=== PATIENT | male | born 1970 | race Caucasian/White ===

== ENCOUNTER 2022-07-28 17:59 | Emergency (ER) | payer OTHER, SELFPAY ==
[2022-07-28] VITALS (37 sets, daily range): BP systolic 149–175; BP diastolic 82–108; PULSE 82–120; RESP 20; TEMP 36.3; O2SAT 89–97; BMI 29.8
--- NOTE | 2022-07-28 18:25 | ED.NURSE ---
Pt right pedal pulse auscultated by doppler monitor. Pt left pedal pulse absent on doppler monitor. MD updated.
--- NOTE | 2022-07-28 18:44 | CRLHL7_ITS ---
For Patients: As a result of the Century Cures Act, medical imaging exams and procedure reports are released immediately into your electronic medical record. You may view this report before your referring provider. If you have questions, please contact your health care provider. Examination: Left lower extremity arterial Duplex ultrasound. Indication: Acute onset right leg pain. Technique: The left leg arteries were examined. Ultrasound performed using real-time romero scale imaging (B-mode 2D), color-flow Doppler and spectral analysis. Comparison: None available Findings: Triphasic waveforms are noted in the common femoral, profunda femoral, and superficial femoral artery. No evidence of arterial occlusion or significant stenosis proximal to the popliteal artery. Triphasic waveform in the proximal popliteal artery with abrupt occlusion of the mid popliteal artery. The anterior tibial and dorsalis pedis arteries are also occluded. Proximal posterior tibial and peroneal arteries are occluded with some weak monophasic flow detected in both vessels distally. Impression: 1. Occlusion of popliteal artery with no flow identified in the anterior tibial/dorsalis pedis artery. Minimal monophasic flow in the posterior tibial and peroneal arteries. Discussed with Dr. Mendieta at time of interpretation. Dictated by Jua nJ Piña MD @ 07/28/2022 8:29:01 PM (Electronically Signed)
[2022-07-28] MEDS: MORPHINE 4 MG/ML INJ IVP ×2 (18:47→19:26)
[2022-07-28] MEDS: ONDANSETRON 2 MG/ML inj 4 MG IVP (18:47)
[2022-07-28 18:58] LABS: Basophils Percent Auto 0.4 % (0.0-3.0); Eosinophils Percent Auto 0.7 % (0.0-7.0); Hematocrit 43.9 % (37.0-53.0); Hemoglobin* 14.3 gm/dL (13.5-17.5); Immature Granulocytes Pct Auto 0.3 %; Lymphocytes Percent Auto 5.6 % (20-44); Mean Corpuscular HGB Conc 33 gm/dL (32-36); Mean Corpuscular Hemoglobin 28 pg (26-34); Mean Corpuscular Volume 86 fL (80-100); Platelet Count* 179 K/uL (140-440); RDW Coefficient of Variation % 14.3 % (11.5-15.5)
[2022-07-28] MEDS: HEPARIN 25,000 UNIT/500 ML BAG 20 UNIT IV (19:02)
[2022-07-28 19:03] LABS: Slide Review Reflex No
[2022-07-28] MEDS: HEPARIN 5,000 UNIT/0.5 ML INJ 4000 UNIT IVP (19:03)
[2022-07-28] MEDS: 0.9 % SODIUM CHLORIDE 1000 ml 1,000 ML IV (19:04)
[2022-07-28 19:10] LABS: Albumin* 4.2 g/dL (3.3-5.0)
--- NOTE | 2022-07-28 19:10 | ED.GENADULT ---
HPI - General Adult General Date Seen: 07/28/22 Chief complaint: Extremity Pain/Injury, Lower Stated complaint: Stabbing pain in L leg, top of foot to below knee Time Seen by Provider: 07/28/22 18:09 Source: patient History of Present Illness HPI narrative: Patient is a 52-year-old male with history of CT, cholecystectomy, rectal cancer and colostomy. He presents with sudden onset of severe left leg pain. This started around noon today, he says it started in the anterior ankle initially. He had some paresthesias in his foot developed as well. He says the severe pain in his ankle region lasted for about an hour and a half and then seem to darius a little bit. For the afternoon, pain was present but less severe. However, since then it has crept up his leg any now has severe pain in the wallace area up to just below his knee. He has severe pain if he tries to actively dorsiflex the foot. He has severe pain when he is at rest. His notes that his foot looks ?bruised?. They have not noted any redness. He sometimes has swelling in his legs but not currently. He has not had any trauma. He does not take any anticoagulants. His last surgery was a couple of years ago. No recent head trauma or bleeding. He does not currently smoke. No history of significant cigarette use although he does chew tobacco. He does drink regularly, his says that he drinks more than he should. Related Data Home Medications Medication Instructions Recorded Confirmed No Known Home Medications 07/28/22 07/28/22 Allergies Allergy/AdvReac Type Severity Reaction Status Date / Time No Known Drug Allergies Allergy Verified 07/28/22 18:06 Review of Systems Status of ROS: Reports: 10 or more systems reviewed and unremarkable except as noted in History and below PFSH PFS Social History Smoking Status: Former smoker Do you use any of these nicotine containing products: None Second hand tobacco smoke exposure: No How often do you have a drink containing alcohol: 4 or more times a week How many standard drinks containing alcohol do you have on a typical day: 3 or 4 How often do you have six or more drinks on one occasion: Monthly AUDIT-C Alcohol total score: 7 Non-prescribed substance use: denies use Exam Narrative: Exam Narrative: Vital signs as noted above. In general, an alert, nontoxic male. Looks uncomfortable. Head: Normocephalic, atraumatic. Eyes: Pupils are equal reactive. Extraocular movements are full. Conjunctivae are normal. Conjunctiva anicteric. ENT: Mucous membranes are moist. Throat is normal. Neck: Supple without lymphadenopathy. Heart: Regular rate and rhythm. No murmur or rub. Lungs: Clear bilaterally. No increased work of breathing, crackles or wheezes. Abdomen: Soft and nontender. No organomegaly. Ostomy bag. Extremities: On the right, he has a good dorsalis pedis pulse, brisk capillary refill. On the left, he has significant tenderness of the anterior tibialis muscle. There is no significant erythema or edema. Dorsalis pedis pulse is absent. The foot is cool, dusky in appearance. Capillary refill is 3+ seconds. He does have hair on his toes. He has pain with active dorsiflexion of the ankle on the left but does not have pain with passive dorsiflexion. Neurologic: Patient is alert and oriented to person and place. Speech is fluent. Face is symmetric. Moves all extremities equally. Affect: Normal. Skin: Warm and dry. Well perfused. Const: Vital Signs, click to edit/add: Vital Signs - 24 hr 07/28/22 18:03 07/28/22 18:31 07/28/22 18:32 Temperature 97.4 F L Pulse Rate 110 H 111 H Pulse Rate [Right Pulse Oximeter] 120 H Respiratory Rate 20 Blood Pressure 164/93 H Blood Pressure [Ri ght Upper Arm] 175/86 H Pulse Oximetry 97 97 96 Oxygen Delivery Me thod Room Air Room Air 07/28/22 19:06 07/28/22 19:07 07/28/22 19:15 Temperature Pulse Rate 97 82 96 Pulse Rate [Right Pulse Oximeter] Respiratory Rate Blood Pressure 149/90 H Blood Pressure [Ri ght Upper Arm] Pulse Oximetry 94 94 94 Oxygen Delivery Me thod 07/28/22 19:16 07/28/22 19:17 07/28/22 19:30 Temperature Pulse Rate 98 96 101 H Pulse Rate [Right Pulse Oximeter] Respiratory Rate Blood Pressure 153/88 H Blood Pressure [Ri ght Upper Arm] Pulse Oximetry 92 96 96 Oxygen Delivery Wi thod 07/28/22 19:31 07/28/22 19:45 07/28/22 19:46 Temperature Pulse Rate 106 H 102 H 107 H Pulse Rate [Right Pulse Oximeter] Respiratory Rate Blood Pressure 161/96 H 162/89 H Blood Pressure [Ri ght Upper Arm] Pulse Oximetry 95 95 94 Oxygen Delivery Me thod 07/28/22 20:00 07/28/22 20:01 07/28/22 20:15 Temperature Pulse Rate 98 106 H 103 H Pulse Rate [Right Pulse Oximeter] Respiratory Rate Blood Pressure 165/101 H Blood Pressure [Ri ght Upper Arm] Pulse Oximetry 95 95 95 Oxygen Delivery Me thod 07/28/22 20:16 07/28/22 20:17 07/28/22 20:30 Temperature Pulse Rate 106 H 108 H 105 H Pulse Rate [Right Pulse Oximeter] Respiratory Rate Blood Pressure 161/91 H Blood Pressure [Ri ght Upper Arm] Pulse Oximetry 93 95 94 Oxygen Delivery Me thod 07/28/22 20:32 07/28/22 20:45 07/28/22 20:46 Temperature Pulse Rate 106 H 104 H 102 H Pulse Rate [Right Pulse Oximeter] Respiratory Rate Blood Pressure 174/92 H 158/88 H Blood Pressure [Ri ght Upper Arm] Pulse Oximetry 95 93 92 Oxygen Delivery Me thod 07/28/22 21:00 07/28/22 21:01 07/28/22 21:15 Temperature Pulse Rate 104 H 105 H 118 H Pulse Rate [Right Pulse Oximeter] Respiratory Rate Blood Pressure 160/93 H Blood Pressure [Ri ght Upper Arm] Pulse Oximetry 91 93 92 Oxygen Delivery Me thod 07/28/22 21:16 07/28/22 21:30 07/28/22 21:31 Temperature Pulse Rate 98 104 H 116 H Pulse Rate [Right Pulse Oximeter] Respiratory Rate Blood Pressure 161/88 H 158/94 H Blood Pressure [Ri ght Upper Arm] Pulse Oximetry 89 92 93 Oxygen Delivery Me thod 07/28/22 21:32 07/28/22 21:45 07/28/22 21:47 Temperature Pulse Rate 102 H 102 H 98 Pulse Rate [Right Pulse Oximeter] Respiratory Rate Blood Pressure 151/82 H Blood Pressure [Ri ght Upper Arm] Pulse Oximetry 93 92 92 Oxygen Delivery Me thod 07/28/22 22:00 07/28/22 22:01 07/28/22 22:15 Temperature Pulse Rate 102 H 105 H 102 H Pulse Rate [Right Pulse Oximeter] Respiratory Rate Blood Pressure 158/94 H Blood Pressure [Ri ght Upper Arm] Pulse Oximetry 90 93 94 Oxygen Delivery Me thod 07/28/22 22:16 07/28/22 22:17 07/28/22 22:30 Temperature Pulse Rate 104 H 108 H 112 H Pulse Rate [Right Pulse Oximeter] Respiratory Rate Blood Pressure 159/92 H Blood Pressure [Ri ght Upper Arm] Pulse Oximetry 92 93 95 Oxygen Delivery Me thod 07/28/22 22:32 Temperature Pulse Rate 110 H Pulse Rate [Right Pulse Oximeter] Respiratory Rate Blood Pressure 172/108 H Blood Pressure [Ri ght Upper Arm] Pulse Oximetry 96 Oxygen Delivery Me thod Documenting provider has reviewed patient's vital signs: yes Course Course Hospital Course: Following initial evaluation, my suspicion was for acute arterial occlusion. We were not able to Doppler a pulse. I ordered labs, an IV, 1000 mL normal saline, morphine for pain control as well as Zofran. I did put in a call to [facility] as that is where he had his cardiology care. I spoke with the vascular surgeon, Dr. Petit, who recommended getting an arterial ultrasound here. I did initiate heparin in the meantime. I spoke with the apparatus lineman as she did the ultrasound, this confirmed clot in the proximal popliteal artery and very minimal flow distal to that. I then spoke again with Dr. Petit, and patient will be accepted to [facility]. He did have ongoing pain despite 8 mg of morphine so I switched to Dilaudid. His labs were notable for a mildly elevated white blood cell count of 11.2, hemoglobin was normal. Metabolic panel showed a sodium of 133, potassium 4.3. CO2 was 18. BUN creatinine normal. Blood sugar was elevated at 331. I did give him 8 units of insulin. LFTs were normal. COVID was negative. An EKG showed a sinus rhythm, ventricular rate of 96 beats per minute. Poor R-wave progression. Small voltages. No acute ST segment changes. Troponin is 0. Venous gas shows a normal pH, pCO2 is 34, bicarb is 20. Final radiology report on the arterial Doppler is as follows:. Occlusion of popliteal artery with no flow identified in the anterior tibial/dorsalis pedis artery. Minimal monophasic flow in the posterior tibial and peroneal arteries. We have been waiting for a bit now for bed assignment from [facility]; technically they were on divert [facility] beds and accepted him based on his critical limb status. As of 10:00 p.m., we do not have a bed assignment. His pain is better controlled. Pulse and blood pressure are improved relative to arrival, O2 sat slightly lower the patient does not describe any shortness of breath. Re-evaluation of his foot shows it to be warmer, but more dusky. There are more areas of pallor now, capillary refill is greater than 5 seconds. Patient care will be signed out to Dr. East while we await transfer. Recheck blood sugar is pending. Vital Signs Vital signs: Initial Vital Signs Temperature 97.4 F L 07/28/22 18:03 Temperature Source Temporal Artery Scan 07/28/22 18:03 Pulse Rate 120 H 07/28/22 18:03 Respiratory Rate 20 07/28/22 18:03 Blood Pressure 175/86 H 07/28/22 18:03 Blood Pressure Mean 115 07/28/22 18:03 Blood Pressure Position Sitting 07/28/22 18:03 Pulse Oximetry 97 07/28/22 18:03 Oxygen Delivery Method 07/28/22 18:03 Vital Signs Temperature 97.4 F L 07/28/22 18:03 Pulse Rate 120 H 07/28/22 18:03 Respiratory Rate 20 07/28/22 18:03 Blood Pressure 175/86 H 07/28/22 18:03 Pulse Oximetry 97 07/28/22 18:03 Oxygen Delivery Method 07/28/22 18:03 Temperature 97.4 F L 07/28/22 18:03 Pulse Rate 110 H 07/28/22 22:32 Respiratory Rate 20 07/28/22 18:03 Blood Pressure 172/108 H 07/28/22 22:32 Pulse Oximetry 96 07/28/22 22:32 Oxygen Delivery Method 07/28/22 18:31 Medical Decision Making Lab Data Labs: Lab Results 07/28/22 07/28/22 07/28/22 Range/Units 18:45 18:45 18:45 WBC 11.20 H (4.50-11.00) K/uL RBC 5.10 (4.30-5.90) m/uL Hgb 14.3 (13.5-17.5) gm/dL Hct 43.9 (37.0-53.0) % MCV 86 (80-100) fL MCH 28 (26-34) pg MCHC 33 (32-36) gm/dL RDW Coeff of Derek 14.3 (11.5-15.5) % Plt Count 179 (140-440) K/uL Neut % (Auto) 89.0 H (42.0-72.0) % Lymph % (Auto) 5.6 L (20-44) % Hernando % (Auto) 4.0 (0.0-11.0) % Eos % (Auto) 0.7 (0.0-7.0) % Baso % (Auto) 0.4 (0.0-3.0) % Neut # (Auto) 10.00 H (1.7-7.0) K/uL Lymph # (Auto) 0.60 L (0.90-2.90) K/uL Hernando # (Auto) 0.40 (0.00-0.90) K/UL Eos # (Auto) 0.10 (0.00-0.50) K/uL Baso # (Auto) 0.00 (0.00-0.30) K/uL INR (0.91-1.10) APTT (23-33) Seconds D-Dimer Quant (PE/DVT) Cancelled VBG pH (7.32-7.43) VBG pCO2 (40-50) mmHG VBG pO2 (25-47) mmHG VBG HCO3 (21-28) mmol/L Sodium Cancelled Potassium Cancelled Chloride Cancelled Carbon Dioxide Cancelled BUN Cancelled Creatinine Cancelled Estimated Creat Clear Cancelled Estimated GFR Cancelled Glucose Cancelled Calcium Cancelled Total Bilirubin (0.1-1.5) mg/dL Direct Bilirubin (0.0-0.5) mg/dL AST (12-35) U/L ALT (4-50) U/L Alkaline Phosphatase (40-150) U/L Total Protein (6.0-8.3) g/dL Albumin (3.3-5.0) g/dL SARS-CoV-2 (PCR) (Negative) POC Troponin I (0.01-0.04) ng/ml 12/07/28/22 07/28/22 Range/Units 18:45 18:45 18:45 WBC (4.50-11.00) K/uL RBC (4.30-5.90) m/uL Hgb (13.5-17.5) gm/dL Hct (37.0-53.0) % MCV (80-100) fL MCH (26-34) pg MCHC (32-36) gm/dL RDW Coeff of Derek (11.5-15.5) % Plt Count (140-440) K/uL Neut % (Auto) (42.0-72.0) % Lymph % (Auto) (20-44) % Hernando % (Auto) (0.0-11.0) % Eos % (Auto) (0.0-7.0) % Baso % (Auto) (0.0-3.0) % Neut # (Auto) (1.7-7.0) K/uL Lymph # (Auto) (0.90-2.90) K/uL Hernando # (Auto) (0.00-0.90) K/UL Eos # (Auto) (0.00-0.50) K/uL Baso # (Auto) (0.00-0.30) K/uL INR 0.92 (0.91-1.10) APTT 25 (23-33) Seconds D-Dimer Quant (PE/DVT) 1.35 H VBG pH (7.32-7.43) VBG pCO2 (40-50) mmHG VBG pO2 (25-47) mmHG VBG HCO3 (21-28) mmol/L Sodium 133 L Potassium 4.3 Chloride 102 Carbon Dioxide 18 L BUN 8 Creatinine 0.8 Estimated Creat Clear 99.84 Estimated GFR 106 Glucose 331 H Calcium 9.1 Total Bilirubin 0.8 (0.1-1.5) mg/dL Direct Bilirubin 0.1 (0.0-0.5) mg/dL AST 31 (12-35) U/L ALT 22 (4-50) U/L Alkaline Phosphatase 123 (40-150) U/L Total Protein 7.4 (6.0-8.3) g/dL Albumin 4.2 (3.3-5.0) g/dL SARS-CoV-2 (PCR) (Negative) POC Troponin I 0.00 L (0.01-0.04) ng/ml 07/28/22 07/28/22 Range/Units 18:45 20:36 WBC (4.50-11.00) K/uL RBC (4.30-5.90) m/uL Hgb (13.5-17.5) gm/dL Hct (37.0-53.0) % MCV (80-100) fL MCH (26-34) pg MCHC (32-36) gm/dL RDW Coeff of Derek (11.5-15.5) % Plt Count (140-440) K/uL Neut % (Auto) (42.0-72.0) % Lymph % (Auto) (20-44) % Hernando % (Auto) (0.0-11.0) % Eos % (Auto) (0.0-7.0) % Baso % (Auto) (0.0-3.0) % Neut # (Auto) (1.7-7.0) K/uL Lymph # (Auto) (0.90-2.90) K/uL Hernando # (Auto) (0.00-0.90) K/UL Eos # (Auto) (0.00-0.50) K/uL Baso # (Auto) (0.00-0.30) K/uL INR (0.91-1.10) APTT (23-33) Seconds D-Dimer Quant (PE/DVT) VBG pH 7.375 (7.32-7.43) VBG pCO2 34 L (40-50) mmHG VBG pO2 98.3 H (25-47) mmHG VBG HCO3 20 L (21-28) mmol/L Sodium Potassium Chloride Carbon Dioxide BUN Creatinine Estimated Creat Clear Estimated GFR Glucose Calcium Total Bilirubin (0.1-1.5) mg/dL Direct Bilirubin (0.0-0.5) mg/dL AST (12-35) U/L ALT (4-50) U/L Alkaline Phosphatase (40-150) U/L Total Protein (6.0-8.3) g/dL Albumin (3.3-5.0) g/dL SARS-CoV-2 (PCR) Negative SARS-CoV-2 (Negative) POC Troponin I (0.01-0.04) ng/ml Discharge Plan Discharge Clinical Impression: Occlusion of left popliteal artery Patient Disposition: [facility] Condition: Improved Prescriptions: No Action No Known Home Medications Stand Alone Forms: Cold Futures Info Instructions
[2022-07-28 19:11] LABS: Chloride* 102 mmol/L (96-114); Potassium* 4.3 mmol/L (3.6-5.1); Sodium* 133 mmol/L (135-149)
[2022-07-28 19:13] LABS: Bilirubin Direct* 0.1 mg/dL (0.0-0.5); Bilirubin Total* 0.8 mg/dL (0.1-1.5); Carbon Dioxide* 18 mmol/L (20-32); Creatinine* 0.8 mg/dL (0.5-1.5); Est. Creatinine Clearance* 99.84; Estimated Glomerular Filt Rate 106 ml/min; Total Protein* 7.4 g/dL (6.0-8.3)
[2022-07-28 19:14] LABS: Alanine Aminotransferase* 22 U/L (4-50); Alkaline Phosphatase* 123 U/L (40-150); Aspartate Amino Transferase* 31 U/L (12-35); Blood Urea Nitrogen* 8 mg/dL (7-30); Calcium* 9.1 mg/dL (8.4-10.6); Glucose* 331 mg/dL (60-115); INR 0.92 (0.91-1.10); Partial Thromboplastin Time* 25 Seconds (23-33); Prothrombin Time 12.9 Seconds
[2022-07-28 19:17] LABS: D Dimer Quantitative* 1.35 ug/ml (0.00-0.50)
[2022-07-28 19:34] LABS: SARS PCR* Negative SARS-CoV-2 (Negative)
[2022-07-28] MEDS: HYDROmorphone 0.5 mg/0.5 ml inj 1 MG IVP ×2 (20:17→22:33)
[2022-07-28 20:46] LABS: HCO3 VBG 20 mmol/L (21-28); PCO2 VBG 34 mmHG (40-50); PO2 VBG 98.3 mmHG (25-47); pH VBG 7.375 (7.32-7.43)
--- NOTE | 2022-07-28 20:51 | ED.NURSE ---
Dr. Mendieta requesting final US report and labs sent to [facility] at [phone]. Faxed.
--- NOTE | 2022-07-28 21:03 | ED.NURSE ---
VBG labs resolved. Faxed to [facility] ([phone]).
--- NOTE | 2022-07-28 21:11 | ED.NURSE ---
Acceptance at [facility] by Dr. Petit. Call to [facility] ([phone]) for bed assignment and RN-RN handoff. Pt to be assigned to [id number] Unit. Bed TBD. RN to call back for report and when ready for pt to be transferred.
--- NOTE | 2022-07-28 22:10 | ED.NURSE ---
Last oral intake: today 1630 pizza, 1700 soda. RN handoff report given to LISA Monzon. Pt to be transferred to [facility] Room [id number]. Pt's , Consuelo called with update and discussed [facility] visiting hours ([phone]). Nurse line is [phone] and given to pt's , per [facility] RN approval. Dispatch called.
--- NOTE | 2022-07-28 22:52 | ED.NURSE ---
Pt leaves ER via EMS en route to [facility]. Na RN at [facility] updated that pt just received 1 mg dilaudid at 2230. Pt's , Consuelo, updated that pt en route to [place].
== END 2022-07-28 22:53 | disposition short-term general hospital (02) ==
PROVIDERS: Emergency Provider Emergency Medicine
DX: S85.092A Other specified injury of popliteal artery, left leg, initial encounter (principal)
CPT/HCPCS: 36415; 80048; 80076; 82803; 84484; 85025; 85379; 85610; 85730; 87635; 93005; 93926; 96374; 96375; 96376; 99285; J1170; J1644; J2270; J2405; J7030

== ENCOUNTER 2022-07-28 22:27 | Outpatient (CLI) | payer OTHER, SELFPAY | END 2022-07-28 22:28 | disposition home or self-care (01) | LOC: AMB 08-01 15:08 | PROVIDERS: Visit Provider Family Medicine | DX: I82.402 Acute embolism and thrombosis of unspecified deep veins of left lower extremity (principal) | CPT/HCPCS: A0425; A0426 ==